=== PATIENT | female | born 1950 | race Caucasian/White ===

== ENCOUNTER 2016-11-19 12:51 | Emergency (ER) | payer OTHER ==
[~2016-11-19] VITALS: Ht 157.5 cm; Wt 113.1 kg
[~2016-11-19 12:51] MED LIST: AMLODIPINE BESY10 MG PO; CLONAZEPAM0.5 MG PO; DIVALPROEX SOD250 M1 PO; DIVALPROEX SOD250 MG PO; LORATADINE10 M2 PO; NAPROSYN250 MG PO; OLANZAPINE10 MG PO; SYNTHROID100 MCG PO
[2016-11-19 13:51] LABS: HEMATOCRIT 46.3 % (36.0-46.0); MCH 28.3 PG (29.0-34.0); MCHC 32.6 G/DL (30.0-36.0); MCV 86.9 FL (83-99); MEAN PLAT.VOLUME 9.1 uM^3 (9.5-12.4); PLATELET COUNT 294 K/uL (156-360); RBC DIS.WIDTH-CV 15.1 % (11.8-14.6); RBC DIS.WIDTH-SD 47.5 % (39-53); RED BLOOD COUNT 5.33 M/uL (3.80-5.20); WHITE BLOOD COUNT 11.7 K/uL (4.1-10.2)
[2016-11-19 14:01] LABS: CHLORIDE 104 mEq/L (99-109); POTASSIUM 4.4 mEq/L (3.7-5.4); SODIUM 138 mEq/L (136-147)
[2016-11-19 14:02] LABS: GLUCOSE 96 mg/dL (70-99)
[2016-11-19 14:04] LABS: ANION GAP 9 MEQ/L (2-14)
[2016-11-19 14:06] LABS: GFR ESTIMATE (CALCULATED) 53 mL/min/
[2016-11-19 14:07] LABS: UREA NITROGEN (BUN) 21 mg/dL (9-23)
[2016-11-19 15:31] LABS: ADD MIUA? YES; BILIRUBIN NEGATIVE; BLOOD LARGE; COLOR YELLOW ((YELLOW)); GLUCOSE (STRIP) NEGATIVE; KETONES NEGATIVE; LEUKOCYTES NEGATIVE; NITRITE NEGATIVE; PROTEIN (STRIP) NEGATIVE; SPECIFIC GRAVITY 1.009 (1.000-1.030); UROBILINOGEN 0.2 MG/DL (0.2-1.0)
[2016-11-19 16:14] LABS: RED BLOOD CELLS TNTC /HPF (0-5); WHITE BLOOD CELLS 0-5 /HPF (0-5)
[2016-11-19 16:15] LABS: BACTERIA 2+ /HPF; EPITHELIAL CELLS 1+ /HPF; MUCUS NONE SEEN /LPF
[2016-11-19] MEDS ORDERED: MACROBID100 MG PO (18:32)
[2016-11-19 18:45] VITALS: BP 162/91
== END 2016-11-19 18:50 | disposition home or self-care (01) ==
LOC: EME 12:51
PROVIDERS: Physician Assistant Medical
DX: N93.9 Abnormal uterine and vaginal bleeding, unspecified (principal); N39.0 Urinary tract infection, site not specified; F31.9 Bipolar disorder, unspecified; Z86.73 Personal history of transient ischemic attack (TIA), and cerebral infarction without residual deficits; Z88.2 Allergy status to sulfonamides
CPT/HCPCS: 76856; 80048; 81003; 85027; 86850; 86900; 86901; 99281; 99284; J0696